=== PATIENT | female | born 1945 | race Caucasian/White ===

== ENCOUNTER → 2016-08-24 | Outpatient (CLI) | payer OTHER ==
--- NOTE | 2016-08-24 15:08 | REPMRS ---
Patient History The patient states she has not had a clinical breast exam in over a year. Patient is postmenopausal, has history of ovarian cancer at age 68, and has history of other cancer at age 59. No known family history of cancer. Digital Woman Screen Mammo: August 24, 2016 - Exam #: [id number] Bilateral CC and MLO view(s) were taken. Technologist: Pennie Mirza Technologist Prior study comparison: August 03, 2015, digital woman screen mammo performed at [facility]. July 23, 2014, digital woman screen mammo performed at [facility]. FINDINGS: There are scattered fibroglandular densities. There has been no change in the appearance of the mammogram from the prior studies. There is a mild amount of residual fibroglandular tissue which is fairly symmetric. There is no interval development of dominant mass, architectural distortion, or clustered microcalcification suggestive of malignancy. ASSESSMENT: BI-RADS/ACR category 1 mammogram. Negative. Recommendation Routine screening mammogram in 1 year (for women over age 40). This mammogram was interpreted with the aid of an FDA-approved computer-aided dectection system. Electronically Signed By: William Nur MD 08/24/16 [id number]
--- NOTE | 2016-08-26 13:52 | DEXA ---
AP SPINE L1 - L4 1.461 2.1 2.6 LT FEMUR TOTAL 1.130 1.0 1.6 RT FEMUR TOTAL 1.127 0.9 1.6 TOTAL BODY TOTAL OTHER DUAL FEMUR FRAX* ASSESSMENT Risk factors: None. 10 year probability of fracture Major osteoporotic fracture 6.5 % Hip fracture 0.4 % COMMENTS: Normal bone densitometry of the spine and hips. The density of the spine has increased 5.3% since 10/04/2011. The density of the left hip has decreased 1.7% since 10/04/2011. The density of the right hip has decreased 5.1% since 10/04/2011. The increased density of the spine does represent a significant change. The decreased density of the left hip does not represent a significant change. The decreased density of the right hip does represent a significant change. FOLLOW-UP: Recommendation for the next bone density exam: 5 years. GRACE
== END ==
LOC: M WHC 12:59
PROVIDERS: ATTEND Physician Assistant Medical
DX: Z12.31 Encounter for screening mammogram for malignant neoplasm of breast (principal); Z78.0 Asymptomatic menopausal state; Z85.43 Personal history of malignant neoplasm of ovary
CPT/HCPCS: 77080; G0202

== ENCOUNTER → 2016-11-15 | Outpatient (CLI) | payer OTHER ==
[2016-11-15 13:19] LABS: ALKALINE PHOSPHATASE 162 U/L (45-117); ALT/SGPT 22 U/L (12-78); AST/SGOT 20 U/L (15-37); GAMMA GLUTAMYLTRANSPEPTIDASE 24 U/L (5-55); STABLE ALKPHOS 42 U/L
[2016-11-15 13:20] LABS: BILIRUBIN,TOTAL 0.3 MG/DL (0.2-1.0); LABILE ALKPHOS 120 U/L
[2016-11-15 13:21] LABS: ALBUMIN 3.3 GM/DL (3.2-5.2); ALBUMIN/GLOBULIN RATIO 0.89 (1.00-1.93)
[2016-11-15 13:32] LABS: TOTAL IRON BINDING CAPACITY 393 UG/DL (250-450)
[2016-11-18 00:07] LABS: SJOGREN'S ANTI SS-A <0.2 AI (0.0-0.9); SJOGREN'S ANTI SS-B <0.2 AI (0.0-0.9)
== END ==
LOC: M LAB 10:46
PROVIDERS: ATTEND Internal Medicine Gastroenterology
DX: R74.8 Abnormal levels of other serum enzymes (principal)

== ENCOUNTER → 2016-11-17 | Outpatient (CLI) | payer OTHER ==
--- NOTE | 2016-11-18 04:10 | REP ---
Clinical: Abnormal liver function tests. Technique: Real time hoover scale evaluation using curved array transducer. Findings: Hepatomegaly and fatty infiltration to the liver is appreciated without obvious focal hepatic lesion identified. Areas of focal fatty sparing noted. The patient is status post cholecystectomy. The pancreas is incompletely evaluated due to interposed bowel gas but visualized portions appear normal. The right kidney demonstrates cortical atrophic changes and renovascular calcifications without hydronephrosis, cystic or mass lesion. Right kidney measures 11.9 x 6.0 x 5.5 cm. No ascites in the visualized right upper quadrant. Impression: Fatty infiltration to the liver with areas of focal fatty sparing. Chronic renal changes. Signed by Neil Haas MD 11/18/2016 04:01 A
== END ==
LOC: M RAD 07:26
PROVIDERS: ATTEND Internal Medicine Gastroenterology
DX: K76.0 Fatty (change of) liver, not elsewhere classified (principal); R93.421 Abnormal radiologic findings on diagnostic imaging of right kidney

== ENCOUNTER → 2016-12-02 | Outpatient (CLI) | payer OTHER ==
[~2016-12-02] VITALS: Ht 160 cm; Wt 113.4 kg
[~2016-12-02] MED LIST: ALPR0.25 PO; ATOR40TA PO; CELE20TA PO; CHLO25TA PO; K-TA10TA2 PO; LIDOCAINE 2% INJ 100 MG/5 ML SDV (FOR ANES.) As Ordered ONE; MULTTAB25 PO; NS 1,000 ML IV SCH; OMEP40CA2 PO; PROPOFOL 200 MG/20 ML VIAL As Ordered ONE; REST0.05 OU
--- NOTE | 2016-12-02 08:20 | ROOR ---
Patient Name: Patito Mclaughlin Procedure Date: 12/02/2016 7:58 AM Date of : 1945 Age: 71 Room: [facility] Gender: Female Note Status: Finalized Procedure: Colonoscopy Indications: Screening for colorectal malignant neoplasm, Incidental change in bowel habits noted Providers: Siddharth MERAZ MD Referring MD: Aline Gooden DO Requesting Provider: Medicines: Monitored Anesthesia Care Complications: No immediate complications. Procedure: Pre-Anesthesia Assessment: - The heart rate, respiratory rate, oxygen saturations, blood pressure, adequacy of pulmonary ventilation, and response to care were monitored throughout the procedure. The Colonoscope was introduced through the anus and advanced to the cecum, identified by appendiceal orifice and ileocecal valve. The colonoscopy was performed without difficulty. The patient tolerated the procedure well. The quality of the bowel preparation was good. Findings: The perianal and digital rectal examinations were normal. A 3 mm polyp was found in the sigmoid colon. The polyp was sessile. The polyp was removed with a cold snare. Resection and retrieval were complete. A few medium-mouthed diverticula were found in the sigmoid colon. Small Internal Hemorrhoids. The exam was otherwise without abnormality on direct and retroflexion views. Impression: - One 3 mm polyp in the sigmoid colon, removed with a cold snare. Resected and retrieved. - Mild diverticulosis in the sigmoid colon. - Small Internal Hemorrhoids. - The colon examination was otherwise normal on direct and retroflexion views. Recommendation: - Telephone endoscopist for pathology results in 2 weeks. - Repeat colonoscopy in 5-10 years for surveillance.- (depending on pathology report) Siddharth Meraz MD Siddharth MERAZ MD 12/02/2016 8:20:30 AM This report has been signed electronically. Number of Addenda: 0 Note Initiated On: 12/02/2016 7:58 AM Estimated Blood Loss: Estimated blood loss: none.
[2016-12-02 08:30] VITALS: BP 133/60
== END | disposition home or self-care (01) ==
LOC: M OPP 06:55
PROVIDERS: ATTEND Internal Medicine Gastroenterology
DX: K63.5 Polyp of colon (principal); K57.30 Diverticulosis of large intestine without perforation or abscess without bleeding; K64.8 Other hemorrhoids; E78.5 Hyperlipidemia, unspecified; I10 Essential (primary) hypertension; M19.90 Unspecified osteoarthritis, unspecified site; F41.9 Anxiety disorder, unspecified; F33.9 Major depressive disorder, recurrent, unspecified; Z79.899 Other long term (current) drug therapy